=== PATIENT | female | born 1995 | race African-American/Black ===

== ENCOUNTER 2016-06-27 11:00 | Emergency (ER) | payer MEDICAID, OTHER ==
[~2016-06-27] VITALS: Ht 157.5 cm; Wt 60.0 kg
[2016-06-27] MEDS ORDERED: IBUPROFEN 600MG TABLET PO ONE (13:00)
[2016-06-27 13:33] VITALS: BP 115/73
[2016-06-27] MEDS ORDERED: CYCLOBENZAPRINE 10MG TABLET PO SCH (14:00)
== END 2016-06-27 13:34 | disposition left against medical advice (07) ==
LOC: ER 11:29
DX: R51 Headache (principal); Z53.21 Procedure and treatment not carried out due to patient leaving prior to being seen by health care provider; J45.909 Unspecified asthma, uncomplicated
CPT/HCPCS: 99283; L0172